=== PATIENT | female | born 1980 | race Caucasian/White ===

== ENCOUNTER → 2022-01-09 | Outpatient (CLI) | payer OTHER | LOC: M RAD 14:31 | PROVIDERS: ATTEND Otolaryngology | DX: M50.123 Cervical disc disorder at C6-C7 level with radiculopathy (principal) ==

== ENCOUNTER → 2022-05-17 | Outpatient (REF) | LOC: M LABSMTC 10:19 | PROVIDERS: ATTEND Family Medicine | DX: Z11.52 Encounter for screening for COVID-19 (principal) ==

== ENCOUNTER → 2022-05-30 | Outpatient (CLI) | payer BC, OTHER, SELFPAY | LOC: M WHC 15:02 | PROVIDERS: ATTEND Internal Medicine | DX: Z12.31 Encounter for screening mammogram for malignant neoplasm of breast (principal); Z80.3 Family history of malignant neoplasm of breast ==

== ENCOUNTER → 2022-07-04 | Outpatient (CLI) | payer BC | LOC: M RAD 10:35 | DX: M50.123 Cervical disc disorder at C6-C7 level with radiculopathy (principal); Z98.890 Other specified postprocedural states ==

== ENCOUNTER → 2022-09-26 | Outpatient (REF) ==
[2022-09-26 11:13] LABS: RSV AMPLIFICATION NEGATIVE (NEGATIVE)
== END ==
LOC: M EMP 09:46
PROVIDERS: ATTEND Family Medicine
DX: Z20.822 Contact with and (suspected) exposure to COVID-19 (principal)

== ENCOUNTER → 2023-03-05 | Outpatient (REF) | payer BC ==
[2023-03-05 17:49] LABS: PERCENT SATURATION 33.6 % (13.2-45.0)
[2023-03-05 17:50] LABS: FERRITIN 48.3 NG/ML (7.3-270.7)
== END ==
LOC: M LAB REF 16:29
PROVIDERS: ATTEND Internal Medicine
DX: E61.1 Iron deficiency (principal)

== ENCOUNTER → 2023-06-04 | Outpatient (CLI) | payer BC | LOC: M WHC 16:33 | PROVIDERS: ATTEND Internal Medicine | DX: Z12.31 Encounter for screening mammogram for malignant neoplasm of breast (principal) ==

== ENCOUNTER → 2023-12-17 | Outpatient (REF) ==
[2023-12-17 09:24] LABS: RSV AMPLIFICATION NEGATIVE (NEGATIVE)
== END ==
LOC: M EMP 08:32
PROVIDERS: ATTEND Family Medicine
DX: Z01.89 Encounter for other specified special examinations (principal)